=== PATIENT | female | born 2000 | race Caucasian/White ===

== ENCOUNTER 2020-03-30 12:06 | Emergency (ER) | payer OTHER ==
[~2020-03-30] VITALS: Ht 165.1 cm; Wt 63.5 kg
[2020-03-30 12:10] VITALS: BP 103/75
--- NOTE | 2020-03-30 12:22 | ED Lower Extremity ---
General Stated Complaint: L FOOT INJ AT WORK/WC Source: patient Exam Limitations: no limitations History of Present Illness Date Seen by Provider: Mar 30, 2020 Time Seen by Provider: 12:20 Initial Comments To ER with reports of left foot pain. This began after she dropped 4 or 5 cans of paint on her foot while at work at [employer]. Onset: just prior to arrival Severity: moderate Pain/Injury Location: left foot Method of Injury: direct blow Modifying Factors: Worse With Movement Allergies and Home Medications Allergies Coded Allergies: No Known Drug Allergies (Unverified , 03/30/20) Patient Home Medication List Home Medication List Reviewed: Yes Review of Systems Constitutional: see HPI EENTM: see HPI Respiratory: no symptoms reported Cardiovascular: no symptoms reported Genitourinary: no symptoms reported Musculoskeletal: see HPI Skin: no symptoms reported Psychiatric/Neurological: No Symptoms Reported Physical Exam Vital Signs Vital Signs - First Documented 03/30/20 12:10 Temp 36.9 Pulse 87 Resp 20 B/P (MAP) 103/75 (84) Pulse Ox 100 O2 Delivery Room Air Capillary Refill : Height, Weight, BMI Height: '" Weight: lbs. oz. kg; BMI Method: General Appearance: WD/WN, no apparent distress Neck: non-tender, full range of motion Cardiovascular: regular rate, rhythm, no murmur Respiratory: lungs clear, normal breath sounds, no respiratory distress, no accessory muscle use Hips: bilateral hip non-tender, bilateral hip normal inspection, bilateral hip normal range of motion Legs: bilateral leg non-tender, bilateral leg normal inspection, bilateral leg normal range of motion Knees: bilateral knee non-tender, bilateral knee normal inspection, bilateral knee normal range of motion Ankles: bilateral ankle non-tender, bilateral ankle normal inspection, sara ateral ankle normal range of motion Feet: left foot pain, left foot soft tissue tenderness, left foot swelling, left foot other (swelling and bruising over the first MTP joint) Neurologic/Psychiatric: alert, normal mood/affect, oriented x 3 Skin: normal color, warm/dry Progress/Results/Core Measures Results/Orders My Orders Orders - ARPITA MAY APRN Foot, Left, 3 Views (03/30/20 12:18) Hydrocodone/Apap 5/325 Tablet (Lortab 5 (03/30/20 12:30) Medications Given in ED Current Medications Medications Dose Ordered Sig/Andrez Route Start Time Stop Time Status Last Admin Dose Admin Acetaminophen/ Hydrocodone Bitart 1 tab ONCE ONCE PO 03/30/20 12:30 03/30/20 12:31 DC 03/30/20 12:40 1 TAB Vital Signs/I&O 03/30/20 12:10 Temp 36.9 Pulse 87 Resp 20 B/P (MAP) 103/75 (84) Pulse Ox 100 O2 Delivery Room Air Departure Impression Primary Impression: Foot contusion Qualified Codes: S90.32XA - Contusion of left foot, initial encounter Disposition: HOME, SELF-CARE Condition: Stable Departure-Patient Inst. Decision time for Depature: 12:56 Referrals: NO,LOCAL PHYSICIAN (PCP/Family) Primary Care Physician Patient Instructions: Contusion (DC) Add. Discharge Instructions: 1. Use crutches with walking for the next 3-4 days of to 5 days. When you're able to walk without significant pain then you can stop using the crutches. Ice pack for the next 24 hours off and on at 30 minute intervals. Tylenol and ibuprofen for pain control. Images Extremities-Lower 1 - Ecchymosis, Swelling, Tenderness ARPITA MAY CLAIM APPROVER Mar 30, 2020 12:21
[2020-03-30] MEDS ORDERED: HYDROcodone/APAP 5 MG/325 MG (LORTAB) TAB PO ONE (12:30)
--- NOTE | 2020-03-30 12:53 | Diagnostic Imaging Report ---
EXAMINATION: Left foot, 3 views. INDICATION: Traumatic left foot pain. Patient reports dropping 30 gallon paint can onto left foot while at work. Patient reports pain in the left MTP region with associated erythema and bruising. COMPARISON: None available. FINDINGS: No fracture or acute osseous abnormality. Bony alignment is maintained. No arthritic change is noted. Mild soft tissue swelling is noted in the dorsum of the distal foot. No radiopaque foreign body is demonstrated. IMPRESSION: Soft tissue swelling in the distal foot without evidence of underlying fracture or acute osseous abnormality. Dictated by: Dictated on workstation # [id number]
== END 2020-03-30 13:04 | disposition home or self-care (01) ==
LOC: ER 12:08
DX: S90.32XA Contusion of left foot, initial encounter (principal); W20.8XXA Other cause of strike by thrown, projected or falling object, initial encounter
CPT/HCPCS: 73630